=== PATIENT | male | born 1955 | race Caucasian/White ===

== ENCOUNTER 2020-09-23 14:38 | Outpatient (CLI) | payer OTHER | END 2020-09-23 14:39 | disposition home or self-care (01) | LOC: TBSIIMAG 14:38 | PROVIDERS: ATTEND Surgery | DX: D49.6 Neoplasm of unspecified behavior of brain (principal); D32.0 Benign neoplasm of cerebral meninges | CPT/HCPCS: 70553; 82565 ==

== ENCOUNTER 2020-11-30 14:13 | Outpatient (CLI) | payer OTHER | END 2020-11-30 14:14 | disposition home or self-care (01) | LOC: TBSIIMAG 14:13 | PROVIDERS: ATTEND Neurological Surgery | DX: C79.31 Secondary malignant neoplasm of brain (principal) | CPT/HCPCS: 70553 ==

== ENCOUNTER 2020-12-24 10:05 | Outpatient (CLI) | payer OTHER | END 2020-12-24 10:06 | disposition home or self-care (01) | LOC: TBSIIMAG 10:05 | PROVIDERS: ATTEND Neurological Surgery | DX: D49.6 Neoplasm of unspecified behavior of brain (principal); M25.519 Pain in unspecified shoulder; M47.812 Spondylosis without myelopathy or radiculopathy, cervical region; M89.9 Disorder of bone, unspecified | CPT/HCPCS: 70553; 72141; 82565 ==

== ENCOUNTER 2021-01-14 11:54 | Emergency (ER) | payer OTHER | END 2021-01-14 12:40 | disposition home or self-care (01) | LOC: ERS 11:54 | DX: G89.3 Neoplasm related pain (acute) (chronic) (principal); M54.9 Dorsalgia, unspecified | CPT/HCPCS: 99283 ==

== ENCOUNTER 2021-01-16 18:50 | Inpatient (IN) | payer OTHER ==
[~2021-01-16 18:50] MED LIST: Magnevist 469MG/ML 20 ML VIAL ONE
[2021-01-16] MEDS ORDERED: Famotidine/PF 20 mg/2ml Vial ONE (19:46)
[2021-01-16] MEDS ORDERED: methylPREDNISolone Sod Succ/PF 125 MG/2 ML VIAL ONE (19:46)
[2021-01-16] MEDS ORDERED: diphenhydrAMINE 50 MG/ML VIAL ONE (19:46)
[2021-01-16 20:28] LABS: PTT 22.6 sec (22.9-36.1)
[2021-01-16 20:34] LABS: #Lymphocytes 0.6 thou/uL (1.20-3.40); #Monocytes 0.8 thou/uL (0.11-0.59); #Neutrophils 9.7 thou/uL (1.40-6.50); %Basophils 0.1 % (0.0-1.0); %Eosinophils 0.4 % (0.0-10.0); %Lymphocytes 5.8 % (21.0-51.0); %Monocytes 6.7 % (0.0-10.0); Hemoglobin 13.9 g/dL (14.0-18.0); Mean Corpuscular HGB CONC 34.4 g/dL (32.0-36.0); Mean Corpuscular Hemoglobin 33.5 pg (27.0-31.0); Mean Corpuscular Volume 97.2 fL (78.0-98.0); Mean Platelet Volume 9.4 fL (7.4-10.4); Platelet Count 96 thou/uL (130-400); RBC Distribution Width 14.6 % (11.5-14.5); Red Blood Cell (RBC) Count 4.14 mill/uL (4.70-6.10); White Blood Cell (WBC) Count 11.2 thou/uL (4.8-10.8)
[2021-01-16 20:37] LABS: ALT (SGPT) 47 U/L (8-55); AST (SGOT) 20 U/L (5-34); Albumin 3.6 g/dL (3.4-4.8); Alkaline Phosphatase 64 U/L (40-110); Anion Gap 11 mmol/L (10-20); BUN (Urea Nitrogen) 48 mg/dL (8.4-25.7); Bilirubin, Total 0.4 mg/dL (0.2-1.2); Calc. Creatinine Clearance 0 mL/min (70-130); Calcium 8.5 mg/dL (7.8-10.44); Carbon Dioxide 24 mmol/L (23-31); Chloride 110 mmol/L (98-107); Globulin 1.9 g/dL (2.4-3.5); Glucose 100 mg/dL (80-115); Potassium 3.8 mmol/L (3.5-5.1); Protein, Total 5.5 g/dL (5.8-8.1); Sodium 141 mmol/L (136-145)
[2021-01-16 21:01] LABS: MDiff Complete? YES; Ovalocytes SLIGHT = 2-5 cells (100X) (0-1/hpf); Platelet Morphology Comment Appears Decreased
[2021-01-16] MEDS ORDERED: Promethazine HCl 25 MG/ML VIAL IM PRN (21:14)
[2021-01-16] MEDS ORDERED: Acetaminophen/Codeine 30-300mg Tablet PO PRN (21:14)
[2021-01-16] MEDS ORDERED: Acetaminophen 325 MG TAB PO PRN (21:14)
[2021-01-16] MEDS ORDERED: tiZANidine HCl 4 MG TAB PO PRN (21:14)
[2021-01-16] MEDS ORDERED: Ondansetron PF 4 MG/2 ML Vial IVP PRN (21:14)
[2021-01-16] MEDS ORDERED: traMADol HCl 50 MG TAB PO PRN (21:14)
[2021-01-16] MEDS ORDERED: Fentanyl 100 MCG/2 ML VIAL ONE (21:16)
[2021-01-16] MEDS ORDERED: diphenhydrAMINE 50 MG/ML VIAL IVP PRN (21:19)
[2021-01-17] MEDS: Sodium Chloride 0.9% 1,000 ML IV SCH ×2 (00:24→16:01)
[2021-01-17 00:26] VITALS: BMI 28.7
[2021-01-17 00:31] LABS: SARS-CoV-2 NAA Rapid Test Not Detected (NotDetected)
[2021-01-17] MEDS: HYDROcodone/Acetaminophen 7.5/325 mg Tablet PO PRN ×2 (06:45→20:40)
[2021-01-17] MEDS ORDERED: Thrombin 5000 UNITS/5 ML VIAL ONE (07:03)
[2021-01-17] MEDS ORDERED: Phenylephrine 10 MG/ML VIAL ONE ×2 (07:37→08:08)
[2021-01-17] MEDS ORDERED: Dexmedetomidine 200 MCG/2 ML VIAL ONE (07:37)
[2021-01-17] MEDS ORDERED: Fentanyl 100 MCG/2 ML VIAL ONE ×2 (07:37→13:46)
[2021-01-17] MEDS ORDERED: Levofloxacin 500 mg/D5W 100 ml Premix Bag ONE (07:59)
[2021-01-17] MEDS ORDERED: Clindamycin/D5W 900 mg/50 ml Premix Bag ONE (07:59)
[2021-01-17] MEDS ORDERED: HYDROmorphone 0.5 MG/0.5 ML SYRINGE ONE (08:15)
[2021-01-17] MEDS ORDERED: Ondansetron PF 4 MG/2 ML Vial ONE (08:19)
[2021-01-17] MEDS ORDERED: Vecuronium 10 MG VIAL ONE (08:19)
[2021-01-17] MEDS ORDERED: PROPOFOL 200 MG/20 ML VIAL ONE (08:19)
[2021-01-17] MEDS ORDERED: PHENYLEPHRINE-NS 100 MCG/ML 10 ML SYRINGE ONE (08:19)
[2021-01-17] MEDS ORDERED: Dexamethasone 20 MG/5 ML VIAL ONE (08:19)
[2021-01-17] MEDS ORDERED: Rocuronium Bromide 10 MG/ML (10ML VIAL) ONE (08:19)
[2021-01-17] MEDS ORDERED: Lidocaine 1% PF 5 ML VIAL ONE (08:19)
[2021-01-17] MEDS ORDERED: FLU VACC QS2021-22(6MOS UP)/PF 60 MCG/0.5 ML SYRINGE IM ONE (09:00)
[2021-01-17] MEDS ORDERED: Prevnar 13-Val Conj/PF 0.5 ML SYRINGE IM ONE (09:00)
[2021-01-17] MEDS ORDERED: SUGAMMADEX SODIUM 200 MG/2 ML VIAL ONE (10:16)
[2021-01-17 12:07] LABS: #Basophils 0.1 thou/uL (0.0-0.2); #Eosinphils 0.1 thou/uL (0.0-0.7); #Lymphocytes 0.3 thou/uL (1.20-3.40); #Monocytes 0.4 thou/uL (0.11-0.59); #Neutrophils 8.3 thou/uL (1.40-6.50); %Basophils 0.8 % (0.0-1.0); %Eosinophils 0.7 % (0.0-10.0); %Lymphocytes 3.5 % (21.0-51.0); Hemoglobin 11.7 g/dL (14.0-18.0); Mean Corpuscular HGB CONC 33.1 g/dL (32.0-36.0); Mean Corpuscular Hemoglobin 32.1 pg (27.0-31.0); Mean Corpuscular Volume 96.8 fL (78.0-98.0); Mean Platelet Volume 8.8 fL (7.4-10.4); Platelet Count 80 thou/uL (130-400); RBC Distribution Width 14.5 % (11.5-14.5); Red Blood Cell (RBC) Count 3.65 mill/uL (4.70-6.10); White Blood Cell (WBC) Count 9.1 thou/uL (4.8-10.8)
[2021-01-17] MEDS ORDERED: Promethazine HCl 25 MG/ML VIAL IM PRN (12:46)
[2021-01-17] MEDS ORDERED: PACU-Morphine 4MG/ML VIAL SLOW IVP PRN (12:46)
[2021-01-17] MEDS ORDERED: Ondansetron HCl/PF 4 MG/2 ML Vial IVP PRN (12:46)
[2021-01-17] MEDS ORDERED: Promethazine HCl 25 MG/ML VIAL IVPB PRN (12:46)
[2021-01-17] MEDS ORDERED: Morphine 4 MG/ML VIAL ONE (13:18)
[2021-01-17] MEDS ORDERED: Diazepam 5 MG TAB PO PRN (13:30)
[2021-01-17] MEDS ORDERED: Morphine 4 MG/ML VIAL SLOW IVP PRN (13:35)
[2021-01-17] MEDS: Clindamycin/D5W 900 MG in Premix Bag 1 BAG IVPB SCH (15:59)
[2021-01-17] MEDS: Dexamethasone 4 MG TAB PO SCH (18:46)
[2021-01-17] MEDS: Pregabalin 75 MG CAP PO SCH (20:40)
[2021-01-18] MEDS: Dexamethasone 4 MG TAB PO SCH ×4 (00:23→17:03)
[2021-01-18] MEDS: Clindamycin/D5W 900 MG in Premix Bag 1 BAG IVPB SCH ×3 (00:23→17:02)
[2021-01-18] MEDS: Sodium Chloride 0.9% 1,000 ML IV SCH ×2 (04:32→12:27)
[2021-01-18 06:05] LABS: #Eosinphils 0.1 thou/uL (0.0-0.7); #Lymphocytes 0.3 thou/uL (1.20-3.40); #Monocytes 0.3 thou/uL (0.11-0.59); #Neutrophils 7.6 thou/uL (1.40-6.50); %Basophils 0.5 % (0.0-1.0); %Eosinophils 0.7 % (0.0-10.0); %Lymphocytes 4.1 % (21.0-51.0); %Monocytes 3.8 % (0.0-10.0); Hemoglobin 11.2 g/dL (14.0-18.0); Mean Corpuscular HGB CONC 34.5 g/dL (32.0-36.0); Mean Corpuscular Hemoglobin 33.1 pg (27.0-31.0); Mean Platelet Volume 9.3 fL (7.4-10.4); Platelet Count 73 thou/uL (130-400); RBC Distribution Width 14.5 % (11.5-14.5); Red Blood Cell (RBC) Count 3.37 mill/uL (4.70-6.10); White Blood Cell (WBC) Count 8.3 thou/uL (4.8-10.8)
[2021-01-18 06:09] LABS: Prothrombin Time 13.6 sec (12.0-14.7)
[2021-01-18 06:10] LABS: PTT 24.5 sec (22.9-36.1)
[2021-01-18 06:15] LABS: Anion Gap 12 mmol/L (10-20); BUN (Urea Nitrogen) 29 mg/dL (8.4-25.7); Calc. Creatinine Clearance 143 mL/min (70-130); Calcium 7.4 mg/dL (7.8-10.44); Carbon Dioxide 22 mmol/L (23-31); Chloride 108 mmol/L (98-107); Glucose 101 mg/dL (80-115); Potassium 4.4 mmol/L (3.5-5.1); Sodium 138 mmol/L (136-145)
[2021-01-18] MEDS: Pregabalin 75 MG CAP PO SCH ×2 (08:08→20:19)
[2021-01-19] MEDS: Clindamycin/D5W 900 MG in Premix Bag 1 BAG IVPB SCH ×3 (00:14→15:48)
[2021-01-19] MEDS: Dexamethasone 4 MG TAB PO SCH ×4 (00:14→18:18)
[2021-01-19] MEDS: Sodium Chloride 0.9% 1,000 ML IV SCH ×2 (02:56→16:32)
[2021-01-19] MEDS: Pregabalin 75 MG CAP PO SCH ×2 (08:37→20:37)
[2021-01-19] MEDS ORDERED: Furosemide 20 MG/2 ML VIAL SLOW IVP SCH (16:00)
[2021-01-19] MEDS: HYDROcodone/Acetaminophen 7.5/325 mg Tablet PO PRN (21:05)
[2021-01-20] MEDS: Dexamethasone 4 MG TAB PO SCH ×2 (00:23→06:15)
[2021-01-20] MEDS: Clindamycin/D5W 900 MG in Premix Bag 1 BAG IVPB SCH ×2 (00:23→08:43)
[2021-01-20] MEDS: Sodium Chloride 0.9% 1,000 ML IV SCH (05:15)
[2021-01-20] MEDS: Pregabalin 75 MG CAP PO SCH (08:43)
[2021-01-20] MEDS ORDERED: Dexamethasone 1 MG TAB PO SCH (09:00)
[2021-01-20 15:25] VITALS: BP 141/90; TEMP 98.1
[2021-01-21] MEDS ORDERED: Dexamethasone 1 MG TAB PO SCH (09:00)
== END 2021-01-20 17:15 | DRG 29 ==
LOC: ERS 18:50 → SJJU 19:52
PROVIDERS: ADMIT Surgery; ATTEND Surgery
PROC: 00BT0ZZ Excision of Spinal Meninges, Open Approach (ICD-10-PCS; principal; 2021-01-17)
PROC: 0PH404Z Insertion of Internal Fixation Device into Thoracic Vertebra, Open Approach (ICD-10-PCS; 2021-01-17)
PROC: 00NX0ZZ Release Thoracic Spinal Cord, Open Approach (ICD-10-PCS; 2021-01-17)
PROC: 0PB40ZZ Excision of Thoracic Vertebra, Open Approach (ICD-10-PCS; 2021-01-17)
DX: C79.49 Secondary malignant neoplasm of other parts of nervous system (principal); G95.29 Other cord compression; C64.9 Malignant neoplasm of unspecified kidney, except renal pelvis; C78.02 Secondary malignant neoplasm of left lung; C78.01 Secondary malignant neoplasm of right lung; C79.31 Secondary malignant neoplasm of brain; C79.51 Secondary malignant neoplasm of bone; E27.1 Primary adrenocortical insufficiency; Z20.822 Contact with and (suspected) exposure to COVID-19; I48.0 Paroxysmal atrial fibrillation; K21.9 Gastro-esophageal reflux disease without esophagitis; Z90.49 Acquired absence of other specified parts of digestive tract; Z86.711 Personal history of pulmonary embolism; Z86.718 Personal history of other venous thrombosis and embolism; Z79.899 Other long term (current) drug therapy; Z79.01 Long term (current) use of anticoagulants; Z88.1 Allergy status to other antibiotic agents; Z88.0 Allergy status to penicillin; Z88.8 Allergy status to other drugs, medicaments and biological substances; G89.3 Neoplasm related pain (acute) (chronic); M54.9 Dorsalgia, unspecified
CPT/HCPCS: 36415; 36430; 72128; 72157; 76000; 80048; 80053; 85025; 85610; 85730; 86850; 86900; 86901; 88305; 88307; 88311; 93005; 93970; 96374; 96375; 99283; A9579; C1713; J1100; J1170; J1200; J1940; J1956; J2270; J2370; J2405; J2704; J2930; J3010; J3370; J3490; J7050; J8540; P9035; S0028; U0002

== ENCOUNTER 2021-03-01 08:36 | Outpatient (CLI) | payer OTHER | END 2021-03-01 08:37 | disposition home or self-care (01) | LOC: TBSIIMAG 08:36 | PROVIDERS: ATTEND Surgery | DX: D49.6 Neoplasm of unspecified behavior of brain (principal); M47.814 Spondylosis without myelopathy or radiculopathy, thoracic region; Z98.890 Other specified postprocedural states | CPT/HCPCS: 70553; 72072; 82565 ==

== ENCOUNTER 2021-03-08 13:45 | Inpatient (IN) | payer OTHER ==
[2021-03-08 19:34] VITALS: BMI 26.2
[2021-03-08 20:19] LABS: #Eosinphils 0.1 thou/uL (0.0-0.7); #Lymphocytes 0.6 thou/uL (1.20-3.40); #Monocytes 0.3 thou/uL (0.11-0.59); #Neutrophils 7.8 thou/uL (1.40-6.50); %Basophils 0.5 % (0.0-1.0); %Eosinophils 0.8 % (0.0-10.0); %Lymphocytes 6.9 % (21.0-51.0); %Monocytes 3.5 % (0.0-10.0); %Neutrophils 88.2 % (42.0-75.0); Hemoglobin 11.5 g/dL (14.0-18.0); Mean Corpuscular Hemoglobin 32.2 pg (27.0-31.0); Mean Platelet Volume 7.7 fL (7.4-10.4); Platelet Count 201 thou/uL (130-400); RBC Distribution Width 17.8 % (11.5-14.5); Red Blood Cell (RBC) Count 3.57 mill/uL (4.70-6.10); White Blood Cell (WBC) Count 8.8 thou/uL (4.8-10.8)
[2021-03-08 20:29] LABS: Prothrombin Time 13.6 sec (12.0-14.7)
[2021-03-08 20:30] LABS: PTT 25.7 sec (22.9-36.1)
[2021-03-08 20:37] LABS: ALT (SGPT) 45 U/L (8-55); AST (SGOT) 25 U/L (5-34); Albumin 3.4 g/dL (3.4-4.8); Alkaline Phosphatase 88 U/L (40-110); Anion Gap 16 mmol/L (10-20); BUN (Urea Nitrogen) 31 mg/dL (8.4-25.7); Bilirubin, Total 0.3 mg/dL (0.2-1.2); Calc. Creatinine Clearance 122 mL/min (70-130); Calcium 8.8 mg/dL (7.8-10.44); Carbon Dioxide 24 mmol/L (23-31); Chloride 107 mmol/L (98-107); Glucose 124 mg/dL (80-115); Potassium 3.9 mmol/L (3.5-5.1); Protein, Total 6.4 g/dL (5.8-8.1); Sodium 143 mmol/L (136-145)
[2021-03-09] MEDS ORDERED: HYDROcodone/Acetaminophen 5/325 mg Tablet PO PRN (02:19)
[2021-03-09] MEDS ORDERED: Ondansetron PF 4 MG/2 ML Vial IVP PRN (02:19)
[2021-03-09] MEDS ORDERED: Acetaminophen 325 MG TAB PO PRN (02:19)
[2021-03-09] MEDS: Dexamethasone 4 MG TAB PO SCH ×4 (02:54→21:22)
[2021-03-09] MEDS: Sodium Chloride 0.9% 1,000 ML IV SCH ×2 (02:55→18:24)
[2021-03-09 05:52] LABS: SARS-CoV-2 NAA Rapid Test Not Detected (NotDetected)
[2021-03-09] MEDS ORDERED: Bacitracin Zinc Ointment 30 gm TUBE ONE (08:53)
[2021-03-09] MEDS ORDERED: Thrombin 5000 UNITS/5 ML VIAL ONE (08:53)
[2021-03-09] MEDS ORDERED: ceFAZolin 2 GM/DEX 5% 100 ML BAG ONE ×2 (09:08→09:09)
[2021-03-09] MEDS ORDERED: Clindamycin/D5W 900 mg/50 ml Premix Bag ONE (10:15)
[2021-03-09] MEDS ORDERED: Levofloxacin 500 mg/D5W 100 ml Premix Bag ONE (10:15)
[2021-03-09] MEDS ORDERED: Fentanyl 250 MCG/5 ML VIAL ONE (10:28)
[2021-03-09] MEDS ORDERED: Dexmedetomidine 200 MCG/2 ML VIAL ONE (10:28)
[2021-03-09] MEDS ORDERED: Propofol 1,000 MG/100 ML VIAL IV ONE (10:28)
[2021-03-09] MEDS ORDERED: Dexamethasone 20 MG/5 ML VIAL ONE (10:35)
[2021-03-09] MEDS ORDERED: Rocuronium Bromide 10 MG/ML (10ML VIAL) ONE (10:35)
[2021-03-09] MEDS ORDERED: Ondansetron PF 4 MG/2 ML Vial ONE (10:35)
[2021-03-09] MEDS ORDERED: PROPOFOL 200 MG/20 ML VIAL ONE (10:35)
[2021-03-09] MEDS ORDERED: Phenylephrine 10 MG/ML VIAL ONE (10:35)
[2021-03-09] MEDS ORDERED: Lidocaine 1% PF 5 ML VIAL ONE ×2 (10:35)
[2021-03-09] MEDS ORDERED: levETIRAcetam in NS 100 ML ONE (11:37)
[2021-03-09] MEDS ORDERED: PHENYLEPHRINE-NS 100 MCG/ML 10 ML SYRINGE ONE (11:51)
[2021-03-09] MEDS ORDERED: SUGAMMADEX SODIUM 200 MG/2 ML VIAL ONE (12:49)
[2021-03-09] MEDS ORDERED: Promethazine HCl 12.5 MG in Sodium Chloride 0.9% 50 ML IVPB PRN (13:09)
[2021-03-09] MEDS ORDERED: Ondansetron HCl/PF 4 MG/2 ML Vial IVP PRN (13:20)
[2021-03-09] MEDS ORDERED: Promethazine HCl 25 MG/ML VIAL IVPB PRN (13:20)
[2021-03-09] MEDS ORDERED: Promethazine HCl 25 MG/ML VIAL IM PRN (13:20)
[2021-03-09] MEDS ORDERED: Fentanyl 100 MCG/2 ML VIAL ONE ×2 (13:33→17:34)
[2021-03-09] MEDS: Clindamycin/D5W 900 MG in Premix Bag 1 BAG IVPB SCH (18:28)
[2021-03-09] MEDS: Morphine 4 MG/ML VIAL SLOW IVP PRN ×2 (18:28→21:28)
[2021-03-09] MEDS: levETIRAcetam in NS 500 MG in Premix Bag 1 BAG IVPB SCH (21:17)
[2021-03-09] MEDS ORDERED: hydrALAZINE 20 MG/ML VIAL SLOW IVP PRN (21:17)
[2021-03-10] MEDS: Clindamycin/D5W 900 MG in Premix Bag 1 BAG IVPB SCH (02:53)
[2021-03-10] MEDS: Dexamethasone 4 MG TAB PO SCH ×4 (02:53→21:06)
[2021-03-10] MEDS: Acetaminophen/Codeine 30-300mg Tablet PO PRN ×4 (02:57→17:31)
[2021-03-10 03:50] LABS: #Lymphocytes 0.3 thou/uL (1.20-3.40); #Monocytes 0.3 thou/uL (0.11-0.59); #Neutrophils 7.2 thou/uL (1.40-6.50); %Basophils 0.1 % (0.0-1.0); %Eosinophils 0.2 % (0.0-10.0); %Lymphocytes 3.6 % (21.0-51.0); %Neutrophils 92.1 % (42.0-75.0); Hemoglobin 11.1 g/dL (14.0-18.0); Mean Corpuscular HGB CONC 31.3 g/dL (32.0-36.0); Mean Corpuscular Hemoglobin 31.3 pg (27.0-31.0); Mean Platelet Volume 7.5 fL (7.4-10.4); Platelet Count 158 thou/uL (130-400); RBC Distribution Width 17.8 % (11.5-14.5); Red Blood Cell (RBC) Count 3.54 mill/uL (4.70-6.10); White Blood Cell (WBC) Count 7.8 thou/uL (4.8-10.8)
[2021-03-10 04:13] LABS: Anion Gap 12 mmol/L (10-20); BUN (Urea Nitrogen) 19 mg/dL (8.4-25.7); Calc. Creatinine Clearance 149 mL/min (70-130); Calcium 7.9 mg/dL (7.8-10.44); Carbon Dioxide 22 mmol/L (23-31); Chloride 107 mmol/L (98-107); Glucose 97 mg/dL (80-115); Potassium 4.4 mmol/L (3.5-5.1); Sodium 137 mmol/L (136-145)
[2021-03-10] MEDS: Sodium Chloride 0.9% 1,000 ML IV SCH (06:27)
[2021-03-10] MEDS: levETIRAcetam in NS 500 MG in Premix Bag 1 BAG IVPB SCH (07:31)
[2021-03-10] MEDS: levETIRAcetam 500 MG TAB PO SCH (21:05)
[2021-03-11] MEDS: Acetaminophen/Codeine 30-300mg Tablet PO PRN ×2 (02:21→11:44)
[2021-03-11] MEDS: Dexamethasone 4 MG TAB PO SCH (02:22)
[2021-03-11] MEDS ORDERED: Dexamethasone 1 MG TAB PO SCH (08:00)
[2021-03-11] MEDS: levETIRAcetam 500 MG TAB PO SCH (08:12)
[2021-03-11 08:44] VITALS: BP 145/92; TEMP 97.7
[2021-03-11] MEDS ORDERED: Iopamidol 370 76% 50 ML VIAL FS ONE (09:00)
== END 2021-03-11 14:18 | disposition home or self-care (01) | DRG 25 ==
LOC: T4-A 16:02 → CCU 03-09 13:18 → SURG B 03-10 21:29
PROVIDERS: ADMIT Surgery; ATTEND Surgery
PROC: 00B70ZZ Excision of Cerebral Hemisphere, Open Approach (ICD-10-PCS; principal; 2021-03-09)
PROC: 06H Lower Veins, Insertion (ICD-10-PCS; 2021-03-11)
DX: C79.31 Secondary malignant neoplasm of brain (principal); G93.6 Cerebral edema; C78.00 Secondary malignant neoplasm of unspecified lung; C79.51 Secondary malignant neoplasm of bone; E27.1 Primary adrenocortical insufficiency; I82.433 Acute embolism and thrombosis of popliteal vein, bilateral; I82.443 Acute embolism and thrombosis of tibial vein, bilateral; I48.0 Paroxysmal atrial fibrillation; K21.9 Gastro-esophageal reflux disease without esophagitis; N52.9 Male erectile dysfunction, unspecified; Z85.53 Personal history of malignant neoplasm of renal pelvis; Z86.711 Personal history of pulmonary embolism; Z79.899 Other long term (current) drug therapy; Z88.1 Allergy status to other antibiotic agents; Z88.0 Allergy status to penicillin; Z88.8 Allergy status to other drugs, medicaments and biological substances; Z90.49 Acquired absence of other specified parts of digestive tract; Z79.01 Long term (current) use of anticoagulants
CPT/HCPCS: 36415; 37191; 70450; 76942; 80048; 80053; 85025; 85610; 85730; 86850; 86900; 86901; 88307; 88341; 88342; 93970; C1713; C1880; J1100; J1642; J1953; J1956; J2270; J2370; J2405; J2704; J3010; J3490; J7050; J8540; Q9967; U0002; U0003; U0005

== ENCOUNTER 2021-03-29 11:36 | Outpatient (CLI) | payer OTHER | END 2021-03-29 11:37 | disposition home or self-care (01) | LOC: CT 11:36 | PROVIDERS: ATTEND Surgery | DX: C79.31 Secondary malignant neoplasm of brain (principal); J32.3 Chronic sphenoidal sinusitis; Z98.890 Other specified postprocedural states | CPT/HCPCS: 70450 ==

== ENCOUNTER 2021-04-04 09:47 | Inpatient (IN) | payer OTHER, BC ==
[2021-04-04] MEDS ORDERED: Lorazepam 2 MG/ML VIAL ONE ×2 (09:51→09:58)
[2021-04-04] MEDS ORDERED: levETIRAcetam in NS 0 ML ONE (09:56)
[2021-04-04] MEDS ORDERED: Dexamethasone 10 MG/ML VIAL ONE (09:56)
[2021-04-04] MEDS ORDERED: levETIRAcetam in NS 100 ML ONE (09:58)
[2021-04-04 11:20] LABS: #Eosinphils 0.1 thou/uL (0.0-0.7); #Lymphocytes 0.7 thou/uL (1.20-3.40); #Monocytes 0.4 thou/uL (0.11-0.59); #Neutrophils 7.1 thou/uL (1.40-6.50); %Basophils 0.2 % (0.0-1.0); %Eosinophils 0.9 % (0.0-10.0); %Lymphocytes 8.2 % (21.0-51.0); %Monocytes 4.2 % (0.0-10.0); %Neutrophils 86.5 % (42.0-75.0); Hemoglobin 11.1 g/dL (14.0-18.0); Mean Corpuscular Hemoglobin 32.4 pg (27.0-31.0); Mean Platelet Volume 8.2 fL (7.4-10.4); Platelet Count 122 thou/uL (130-400); RBC Distribution Width 19.9 % (11.5-14.5); Red Blood Cell (RBC) Count 3.41 mill/uL (4.70-6.10); White Blood Cell (WBC) Count 8.2 thou/uL (4.8-10.8)
[2021-04-04 11:26] LABS: ALT (SGPT) 47 U/L (8-55); AST (SGOT) 27 U/L (5-34); Albumin 3.5 g/dL (3.4-4.8); Alkaline Phosphatase 77 U/L (40-110); Anion Gap 14 mmol/L (10-20); BUN (Urea Nitrogen) 21 mg/dL (8.4-25.7); Bilirubin, Total 0.3 mg/dL (0.2-1.2); Calc. Creatinine Clearance 0 mL/min (70-130); Carbon Dioxide 23 mmol/L (23-31); Chloride 104 mmol/L (98-107); Globulin 2.8 g/dL (2.4-3.5); Glucose 87 mg/dL (80-115); Protein, Total 6.3 g/dL (5.8-8.1); Sodium 137 mmol/L (136-145)
[2021-04-04 11:30] LABS: INR-International Normal Ratio 1.2; PTT 31.8 sec (22.9-36.1); Prothrombin Time 14.8 sec (12.0-14.7)
[2021-04-04 12:36] LABS: Bilirubin Negative (Negative); Blood, Urine Negative (Negative); Clarity Clear (Clear); Glucose, Urine (Dipstick) Normal (Negative); Ketone, Urine Negative (Negative); Leukocyte Negative Leu/uL (Negative); Nitrite Negative (Negative); Protein, Urine (Dipstick) 10 mg/dL (Neg-Trace); Specific Gravity, Urine 1.021 (1.002-1.036); Urobilinogen Normal mg/dL (Less than 2)
[2021-04-04] MEDS ORDERED: Sodium Chloride 0.9% 1,000 ML IV SCH (13:30)
[2021-04-04] MEDS ORDERED: Ondansetron ODT 4 MG TAB PO PRN (13:42)
[2021-04-04] MEDS ORDERED: Acetaminophen 325 MG TAB PO PRN (13:42)
[2021-04-04] MEDS ORDERED: Ondansetron PF 4 MG/2 ML Vial IVP PRN (13:42)
[2021-04-04] MEDS ORDERED: HYDROcodone/Acetaminophen 5/325 mg Tablet PO PRN (13:42)
[2021-04-04 16:43] LABS: SARS-CoV-2 PCR by NAA Not Detected (NotDetected)
[2021-04-04] MEDS ORDERED: Dexamethasone 4 mg/ml Vial SLOW IVP SCH (21:00)
[2021-04-04 21:26] VITALS: BMI 28.7
[2021-04-04] MEDS: Famotidine/PF 20 mg/2ml Vial SLOW IVP SCH (21:44)
[2021-04-04] MEDS ORDERED: levETIRAcetam in NS 1,000 MG in Premix Bag 1 BAG IVPB SCH (22:00)
[2021-04-05 06:41] LABS: #Lymphocytes 0.5 thou/uL (1.20-3.40); #Monocytes 0.2 thou/uL (0.11-0.59); #Neutrophils 4.9 thou/uL (1.40-6.50); %Eosinophils 0.4 % (0.0-10.0); %Lymphocytes 8.5 % (21.0-51.0); %Monocytes 4.3 % (0.0-10.0); %Neutrophils 86.8 % (42.0-75.0); Hemoglobin 10.5 g/dL (14.0-18.0); Mean Corpuscular HGB CONC 33.6 g/dL (32.0-36.0); Mean Corpuscular Hemoglobin 32.6 pg (27.0-31.0); Mean Corpuscular Volume 97.1 fL (78.0-98.0); Mean Platelet Volume 7.6 fL (7.4-10.4); Platelet Count 163 thou/uL (130-400); RBC Distribution Width 19.2 % (11.5-14.5); Red Blood Cell (RBC) Count 3.22 mill/uL (4.70-6.10); White Blood Cell (WBC) Count 5.7 thou/uL (4.8-10.8)
[2021-04-05 06:44] LABS: Anion Gap 13 mmol/L (10-20); BUN (Urea Nitrogen) 15 mg/dL (8.4-25.7); Calc. Creatinine Clearance 164 mL/min (70-130); Calcium 8.7 mg/dL (7.8-10.44); Carbon Dioxide 23 mmol/L (23-31); Chloride 103 mmol/L (98-107); Glucose 89 mg/dL (80-115); Sodium 135 mmol/L (136-145)
[2021-04-05 07:16] LABS: Vitamin B12 Greater than 2000 pg/mL (211-911)
[2021-04-05] MEDS: Famotidine/PF 20 mg/2ml Vial SLOW IVP SCH (08:20)
[2021-04-05] MEDS ORDERED: levETIRAcetam 500 MG TAB PO SCH (09:00)
[2021-04-05] MEDS ORDERED: Dexamethasone 4 mg/ml Vial SLOW IVP SCH (09:00)
[2021-04-05 16:58] VITALS: BP 136/75; TEMP 98.4
== END 2021-04-05 17:05 | disposition home or self-care (01) | DRG 100 ==
LOC: ERS 09:47 → ERHOLD 12:45 → NEURO 18:27
PROVIDERS: ADMIT Internal Medicine; ATTEND Internal Medicine
DX: G40.89 Other seizures (principal); I62.01 Nontraumatic acute subdural hemorrhage; G92.8 Other toxic encephalopathy; G93.5 Compression of brain; E27.40 Unspecified adrenocortical insufficiency; C64.9 Malignant neoplasm of unspecified kidney, except renal pelvis; I82.523 Chronic embolism and thrombosis of iliac vein, bilateral; C79.31 Secondary malignant neoplasm of brain; C79.51 Secondary malignant neoplasm of bone; Z20.822 Contact with and (suspected) exposure to COVID-19; I10 Essential (primary) hypertension; G93.89 Other specified disorders of brain; T42.4X5A Adverse effect of benzodiazepines, initial encounter; Z90.49 Acquired absence of other specified parts of digestive tract; Z88.0 Allergy status to penicillin; Z79.01 Long term (current) use of anticoagulants; Z79.899 Other long term (current) drug therapy; Z91.041 Radiographic dye allergy status; Z88.1 Allergy status to other antibiotic agents
CPT/HCPCS: 36415; 36416; 70450; 70496; 70498; 71045; 80048; 80053; 81003; 82607; 82746; 84443; 84484; 85025; 85610; 85730; 93005; 94760; 95712; 95819; 95957; J1100; J1953; J2060; J7050; S0028; U0003; U0005